=== PATIENT | female | born 1950 | race Hispanic/Latino ===

== ENCOUNTER 2017-06-30 07:43 | Day surgery (SDC) | payer OTHER ==
[~2017-06-30] VITALS: Ht 157.5 cm; Wt 69.9 kg
[2017-06-30 10:33] VITALS: BP 130/72
== END 2017-06-30 10:50 | disposition home or self-care (01) | DRG 446 ==
LOC: ENDO 07:43
PROVIDERS: ATTEND Surgery
PROC: 0FPB8DZ Removal of Intraluminal Device from Hepatobiliary Duct, Via Natural or Artificial Opening Endoscopic (ICD-10-PCS; principal; 2017-06-30)
DX: K80.50 Calculus of bile duct without cholangitis or cholecystitis without obstruction (principal)

== ENCOUNTER 2018-03-14 08:05 | Emergency (ER) | payer OTHER ==
[~2018-03-14] VITALS: Ht 157.5 cm; Wt 70.6 kg
[~2018-03-14 08:05] MED LIST: KEFLEX500 MG PO; PYRIDIUM200 MG PO
[2018-03-14 09:17] LABS: URINE BILIRUBIN - DIPSTICK NEGATIVE (NEGATIVE); URINE BLOOD DIPSTICK MODERATE (NEGATIVE); URINE COLOR YELLOW; URINE GLUCOSE - DIPSTICK NEGATIVE (NEGATIVE); URINE KETONE NEGATIVE (NEGATIVE); URINE LEUK ESTERASE TRACE (NEGATIVE); URINE NITRITE - DIPSTICK NEGATIVE (Negative); URINE PROTEIN - DIPSTICK TRACE mg/dL (NEG-TRACE); URINE SPECIFIC GRAVITY 1.025
[2018-03-14 09:18] LABS: URINE BACTERIA RARE hpf; URINE CLARITY SL CLOUDY; URINE EPITHELIAL CELLS FEW EPI/hpf (0-FEW); URINE WBC 0-2 WBC/hpf (0-5)
[2018-03-14 09:19] LABS: HEMATOCRIT 39.9 % (37.0-47.0); IMMATURE GRANULOCYTES 0.3 % (0.0-5.0); MEAN CELL VOLUME 92.6 fL CALC (80.0-100.0); MEAN CORPUSCULAR HGB 30.2 pG CALC (26.0-32.0); MEAN CORPUSCULAR HGB CONC 32.6 g/L CALC (32.0-36.0); NEUT# 3.91 thou/uL (2.00-7.15); RED BLOOD COUNT 4.31 mill/uL (4.20-5.60); RED CELL DISTRI WIDTH 13.1 % (11.5-15.5)
[2018-03-14 09:36] LABS: ALBUMIN 4.1 g/dL (3.2-5.0); ALKALINE PHOSPHATASE 80 u/l (38-126); ANION GAP 14 (6-22 (CALC)); BILIRUBIN, TOTAL 0.6 mg/dL (0.0-1.4); BUN 15 mg/dL (8-23); BUN/CREATININE RATIO 26 (12-20 (CALC)); CARBON DIOXIDE 25 mmol/l (22-30); CHLORIDE 108 mmol/l (95-108); CREATININE 0.6 mg/dL (0.5-1.0); GFR > 60 ML/MIN (>=60 (CALC)); GFR FOR AFR.AMER. > 60 ML/MIN (>=60 (CALC)); POTASSIUM 3.5 mmol/l (3.5-5.1); SGOT/AST 24 u/l (9-36); SGPT/ALT 26 u/l (11-66); SODIUM 143 mmol/l (137-146); TOTAL PROTEIN 7.5 g/dL (6.3-8.2)
[2018-03-14] MEDS ORDERED: TORADOL PO (12:32)
[2018-03-14] MEDS ORDERED: ULTRAM50 M1 PO (12:32)
[2018-03-14 12:45] VITALS: BP 140/69
== END 2018-03-14 12:50 | disposition home or self-care (01) ==
LOC: ED 08:05
PROVIDERS: Emergency Medicine
DX: K80.20 Calculus of gallbladder without cholecystitis without obstruction (principal); M47.812 Spondylosis without myelopathy or radiculopathy, cervical region; R10.11 Right upper quadrant pain; R10.31 Right lower quadrant pain; R30.0 Dysuria; M54.2 Cervicalgia; R10.2 Pelvic and perineal pain; R10.13 Epigastric pain
CPT/HCPCS: Q9967

== ENCOUNTER 2018-03-30 05:53 | Day surgery (SDC) | payer OTHER ==
[~2018-03-30] VITALS: Ht 162.6 cm; Wt 68.0 kg
[2018-03-30] VITALS (9 sets, daily range): BP systolic 107–141; BP diastolic 40–68
[~2018-03-30 05:53] MED LIST changes: +TORADOL PO; +ULTRAM50 M1 PO
[2018-03-30] MEDS ORDERED: PERCOCET 5/325M1 TAB PO (09:44)
[2018-03-30] MEDS ORDERED: MOTRIN800 MG PO (09:44)
--- NOTE | 2018-03-30 10:25 | NUR ---
PT ARRIVES VIA [facility] WITH CATHI CHICAS PT ABLE TO SCOOT OVER WITH NO ASSIST FROM STRECHER TO BED. TOLERATED WELL. #20 IN LAC INFUSING WELL. NO REDNESS OR EDEMA NOTED.ADMISSION ASSESMENT COMPLETED AT THIS TIME(SEE INTERVENTIONS). LUNG SOUNDS CLEAR. ABD IS DISTENDED BUT SOFT. HYPOACTIVE BOWEL SOUNDS PRESENT. 3 ADB DRESSINGS, CLEAN DRY AND INTACT, NO DRAINAGE NOTED ON ANY DRESSING . RUQ DRESSING SLIGHTLY LARGER DUE TO MARLYS DRAIN(SMALL AMOUNT SANGUINOUS DRNG NOTED). NO EDEMA NOTED. WILL NOTIFY RT FOR I.S. USAGE/TRAINING.EDUCATED REGAURDING DIET (ICE CHIPS PROVIDED WILL ADVANCE TOLERATED). OOB ACTIVITY AND GENERAL PLAN OF CARE. ALL CONVERSATION WITH DAUGHTER IN LAW JESSICA ACTING TRANSLATER PT IS GREEK SPEAKING ONLY. VERBALIZES UNDERSTANDING. ICE PACK CURRENTLY IN PLACE ON ABD. PT DENIES NEED FOR PAIN MEDICATION.SAFTEY MEASURES INTRODUCED. INSTRUCTED TO CALL FOR ANY ASSISTANCE. FAMILY MEMBERS AT BEDSIDE. PT ABLE TO DEMONSTRATE CALL DIEHL USAGE. WILL CONTINUE TO MONITOR.
--- NOTE | 2018-03-30 10:25 | NUR ---
PT ARRIVES [facility]IA [facility] WITH CATHI CHICAS PT ABLE TO SCOOT OVER WITH NO ASSIST FROM STRECHER TO BED. TOLERATED WELL. #20 IN LAC INFUSING WELL. NO REDNESS OR EDEMA NOTED.ADMISSION ASSESMENT COMPLETED AT THIS TIME(SEE INTERVENTIONS). LUNG SOUNDS CLEAR. ABD IS DISTENDED BUT SOFT. HT
--- NOTE | 2018-03-30 12:00 | NUR ---
PT RESTING IN BED WITH EYES CLOSED. FAMLIY AT BEDSIDE. IV RUNNING AT KVO. COFFE AND WATER PTOVIDED. COFFE TOLERATED WELL. CALL DIEHL IN REACH WILL CONTINUE TO MONITOR.
--- NOTE | 2018-03-30 14:00 | NUR ---
PT UP TO RR WITH MINIMAL ASSIST. VOIDED CLEAR YELLOW URINE. MARLYS DRAIN EMPTIED 30cc OF SANGUINOUS DRANIGE. PT COMPLAINS OF BURNING WITH URINATION. WILL LET MD KNOW AND COLLECT URINE. PT HAVING LITTLE PAIN BUT DOES NOT WANT A PAIN PILL. CALL DIEHL IN REACH WILL CONTINUE TO MONITOR.
--- NOTE | 2018-03-30 16:00 | NUR ---
PT RESTING QUIETLY WITH EYES CLOSED. IV DRESSING REDRESSED JLOOP APPLIED. WILL CONTINUE TO MONITOR.
--- NOTE | 2018-03-30 17:00 | NUR ---
PT UP TO RR WITH ASSIST OF DAUGHTER IN LAW. VOIDED CLEAR YELLOW URINE. URINE SPECIMEN COLLECTED AT THIS TIME. PUDDING PROVIDED TOLERATED. CALL DIEHL IN REACH. WILL CONTINUE TO MONITOR.
--- NOTE | 2018-03-30 18:15 | NUR ---
PT ADVANCED TO SOFT DIET. TOLERATING WELL. FEELS GREAT. CALL DIEHL IN REACH WILL CONTINUE TO MONITOR.
[2018-03-30 18:17] LABS: URINE BILIRUBIN - DIPSTICK NEGATIVE (NEGATIVE); URINE BLOOD DIPSTICK TRACE-INTACT (NEGATIVE); URINE COLOR YELLOW; URINE GLUCOSE - DIPSTICK NEGATIVE (NEGATIVE); URINE KETONE TRACE mg/dL (NEGATIVE); URINE LEUK ESTERASE NEGATIVE (Negative); URINE NITRITE - DIPSTICK NEGATIVE (Negative); URINE PROTEIN - DIPSTICK NEGATIVE (NEG-TRACE); URINE SPECIFIC GRAVITY 1.025; URINE UROBILINOGEN - DIPSTICK 0.2 E.U./dL (0.2)
[2018-03-30 18:18] LABS: URINE CLARITY CLEAR
--- NOTE | 2018-03-30 19:00 | NUR ---
RECEIVED CHANGE OF SHIFT REPORT FROM MICHELLE SERRANO. PT ALERT AND ORIENTED AND LYING IN BED. DENIES PAIN. VISITORS AT BEDSIDE. DELBERT NOTED TO ABDONINAL WOUND WITH MINIMAL DRAINAGE. DRSGS X 3 TO ABDOMEN NOTED CDI. NO APPARENT ACUTE DISTRESS NOTED. WILL CONTINUE TO MONITOR.
--- NOTE | 2018-03-31 | NUR ---
PT RESTING QUIETLY AT THIS TIME. NO APPARENT ACUTE DISTRESS NOTED.
[2018-03-31 04:00] VITALS: BP 121/71
--- NOTE | 2018-03-31 04:20 | NUR ---
PT SLEPT WELL DURING THE NIGHT. PAIN CONTROLLED. NO APPARENT ACUTE CHANGES NOTED IN PT' CONDITION.
[2018-03-31 05:46] LABS: ALBUMIN 3.2 g/dL (3.2-5.0); ALKALINE PHOSPHATASE 71 u/l (38-126); ANION GAP 11 (6-22 (CALC)); BILIRUBIN, TOTAL 0.4 mg/dL (0.0-1.4); BUN 8 mg/dL (8-23); BUN/CREATININE RATIO 13 (12-20 (CALC)); CARBON DIOXIDE 26 mmol/l (22-30); CHLORIDE 108 mmol/l (95-108); CREATININE 0.6 mg/dL (0.5-1.0); GFR > 60 ML/MIN (>=60 (CALC)); GFR FOR AFR.AMER. > 60 ML/MIN (>=60 (CALC)); POTASSIUM 3.6 mmol/l (3.5-5.1); SGOT/AST 67 u/l (9-36); SODIUM 141 mmol/l (137-146)
[2018-03-31 05:47] LABS: HEMATOCRIT 34.7 % (37.0-47.0); HEMOGLOBIN 11.3 g/dl (12.0-16.0); IMMATURE GRANULOCYTES 0.3 % (0.0-5.0); MEAN CELL VOLUME 92.8 fL CALC (80.0-100.0); MEAN CORPUSCULAR HGB 30.2 pG CALC (26.0-32.0); MEAN CORPUSCULAR HGB CONC 32.6 g/L CALC (32.0-36.0); NEUT# 3.88 thou/uL (2.00-7.15); RED BLOOD COUNT 3.74 mill/uL (4.20-5.60); RED CELL DISTRI WIDTH 13.2 % (11.5-15.5)
--- NOTE | 2018-03-31 07:20 | NUR ---
PT REPORT RECIEVED FROM JUAN FRANCISCO ACUÑA. PT SITTING UPRIGHT IN BED. NO S/S OF DISTRESS. PT DENIES ANY NEEDS AT THIS TIME. FAMILY AT BEDSIDE. CALL LIGHT IN REACH. WILL CONTINUE TO MONITOR.
[2018-03-31 08:17] VITALS: BP 126/73
--- NOTE | 2018-03-31 08:17 | NUR ---
PT ASSESSMENT COMPLETE. PT A/O X3. SPEECH IS CLEAR. PT DENIES ANY NAUSEA OR VOMITING AT THIS TIME. RESP EVEN AND UNLABORED. LUNG SOUNDS CLEAR. RT QUADRANT BOWELS HYPOACTIVE. LT QUADRANT BOWELS ACTIVE. PT DENIES ABDOMINAL PAIN BUT STATES SOME ABDOMINAL COMFORT TO RT QUADRANTS. ICE APPLIED. PT HAS 3 SMALL SURGICAL INCISIONS TO ABDOMEN. DRESSINGS CDI. STRONG RADIAL AND PEDAL PULSES. #20 LAC SL. IV SITE APPEARS HEALTHY. SCD IN PLACE. PLAN OF CARE DISCUSSED. PT AND FAMILY STATES UNDERSTANDING. SAFETY PRECAUTIONS IN PLACE. CALL LIGHT IN REACH. WILL CONTINUE TO MONITOR.
--- NOTE | 2018-03-31 11:10 | NUR ---
D/C INSTRUCTIONS REVIEWED WITH PT AND FAMILY. CARE OF DELBERT DRAIN REVIEWED. ALL QUESTIONS ANSWERED. PT AND FAMILY STATE UNDERSTANDING.
[2018-03-31 11:11] VITALS: BP 126/68
--- NOTE | 2018-03-31 11:20 | NUR ---
Discharge instructions given. Patient verbalizes understanding of same. Discharged in stable condition via Wheelchair to Home with family. All belongings sent with pt.
== END 2018-03-31 11:20 | disposition home or self-care (01) ==
LOC: MS2 05:53 → ORM 05:53 → MS2 10:26 → ORM 03-31 11:20
PROVIDERS: ATTEND Surgery
DX: K80.10 Calculus of gallbladder with chronic cholecystitis without obstruction (principal)
CPT/HCPCS: Q9967

== ENCOUNTER 2019-03-27 12:57 | Emergency (ER) | payer MEDICARE, OTHER ==
[~2019-03-27] VITALS: Ht 162.6 cm; Wt 69.0 kg
[~2019-03-27 12:57] MED LIST changes: +MOTRIN800 MG PO; +PERCOCET 5/325M1 TAB PO
[2019-03-27 14:16] LABS: HEMATOCRIT 39.9 % (37.0-47.0); HEMOGLOBIN 12.9 g/dl (12.0-16.0); IMMATURE GRANULOCYTES 0.3 % (0.0-5.0); MEAN CELL VOLUME 91.3 fL CALC (80.0-100.0); MEAN CORPUSCULAR HGB 29.5 pG CALC (26.0-32.0); MEAN CORPUSCULAR HGB CONC 32.3 g/L CALC (32.0-36.0); NEUT# 5.84 thou/uL (2.00-7.15); RED BLOOD COUNT 4.37 mill/uL (4.20-5.60); RED CELL DISTRI WIDTH 13.5 % (11.5-15.5)
[2019-03-27 14:45] LABS: ALKALINE PHOSPHATASE 89 u/l (38-126); AMYLASE 61 u/l (30-110); ANION GAP 12 (6-22 (CALC)); BILIRUBIN, TOTAL 0.3 mg/dL (0.0-1.4); BUN 10 mg/dL (8-23); BUN/CREATININE RATIO 15 (12-20 (CALC)); CARBON DIOXIDE 28 mmol/l (22-30); CHLORIDE 105 mmol/l (95-108); CREATININE 0.7 mg/dL (0.5-1.0); GFR > 60 ML/MIN (>=60 (CALC)); GFR FOR AFR.AMER. > 60 ML/MIN (>=60 (CALC)); LIPASE 57 u/l (23-300); POTASSIUM 3.6 mmol/l (3.5-5.1); SGOT/AST 22 u/l (9-36); SODIUM 140 mmol/l (137-146)
[2019-03-27 14:49] LABS: ALBUMIN 4.1 g/dL (3.2-5.0); TOTAL PROTEIN 7.5 g/dL (6.3-8.2)
[2019-03-27 15:13] LABS: URINE BILIRUBIN - DIPSTICK NEGATIVE (NEGATIVE); URINE BLOOD DIPSTICK SMALL (NEGATIVE); URINE COLOR YELLOW; URINE GLUCOSE - DIPSTICK NEGATIVE (NEGATIVE); URINE KETONE NEGATIVE (NEGATIVE); URINE NITRITE - DIPSTICK NEGATIVE (Negative); URINE PROTEIN - DIPSTICK NEGATIVE (NEG-TRACE); URINE SPECIFIC GRAVITY <=1.005; URINE UROBILINOGEN - DIPSTICK 0.2 E.U./dL (0.2)
[2019-03-27 15:15] LABS: URINE LEUK ESTERASE SMALL (NEGATIVE)
[2019-03-27 15:34] LABS: URINE SQUAMOUS EPITHELIAL CELL FEW EPI/hpf (0-FEW)
[2019-03-27] MEDS ORDERED: PROTONIX40 MG PO (16:27)
[2019-03-27] MEDS ORDERED: KEFLEX500 MG PO (16:27)
[2019-03-27 17:10] VITALS: BP 149/71
== END 2019-03-27 17:10 | disposition home or self-care (01) ==
LOC: ED 12:57
DX: R10.13 Epigastric pain (principal); N39.0 Urinary tract infection, site not specified
CPT/HCPCS: Q9967

== ENCOUNTER 2019-07-04 | Emergency (ER) | payer MEDICARE ==
[~2019-07-04] MED LIST changes: +PROTONIX40 MG PO
[2019-07-04 11:39] LABS: URINE BILIRUBIN - DIPSTICK NEGATIVE (NEGATIVE); URINE BLOOD DIPSTICK MODERATE (NEGATIVE); URINE COLOR YELLOW; URINE GLUCOSE - DIPSTICK NEGATIVE (NEGATIVE); URINE KETONE NEGATIVE (NEGATIVE); URINE LEUK ESTERASE NEGATIVE (NEGATIVE); URINE NITRITE - DIPSTICK NEGATIVE (Negative); URINE PROTEIN - DIPSTICK NEGATIVE (NEG-TRACE); URINE SPECIFIC GRAVITY 1.015; URINE UROBILINOGEN - DIPSTICK 0.2 E.U./dL (0.2)
[2019-07-04 11:40] LABS: URINE RBC 0-2 RBC/hpf (0-5); URINE WBC 0-2 WBC/hpf (0-5)
[2019-07-04 12:15] LABS: HEMATOCRIT 37.2 % (37.0-47.0); IMMATURE GRANULOCYTES 0.2 % (0.0-5.0); MEAN CELL VOLUME 92.1 fL CALC (80.0-100.0); MEAN CORPUSCULAR HGB 29.7 pG CALC (26.0-32.0); MEAN CORPUSCULAR HGB CONC 32.3 g/L CALC (32.0-36.0); NEUT# 3.57 thou/uL (2.00-7.15); RED BLOOD COUNT 4.04 mill/uL (4.20-5.60); RED CELL DISTRI WIDTH 13.2 % (11.5-15.5)
[2019-07-04 13:19] LABS: ALBUMIN 3.7 g/dL (3.2-5.0); ALKALINE PHOSPHATASE 68 u/l (38-126); ANION GAP 11 (6-22 (CALC)); BILIRUBIN, TOTAL 0.3 mg/dL (0.0-1.4); BUN 12 mg/dL (8-23); BUN/CREATININE RATIO 20 (12-20 (CALC)); CARBON DIOXIDE 27 mmol/l (22-30); CHLORIDE 105 mmol/l (95-108); CREATININE 0.6 mg/dL (0.5-1.0); GFR > 60 ML/MIN (>=60 (CALC)); GFR FOR AFR.AMER. > 60 ML/MIN (>=60 (CALC)); LIPASE 51 u/l (23-300); POTASSIUM 3.9 mmol/l (3.5-5.1); SGOT/AST 22 u/l (9-36); SODIUM 139 mmol/l (137-146); TOTAL PROTEIN 7.1 g/dL (6.3-8.2)
[2019-07-04] MEDS ORDERED: PROTONIX40 M2 PO (16:17)
== END 2019-07-04 16:39 | disposition home or self-care (01) ==
PROVIDERS: Family Medicine
DX: K29.70 Gastritis, unspecified, without bleeding (principal); R31.9 Hematuria, unspecified
CPT/HCPCS: Q9967

== ENCOUNTER 2021-03-14 10:10 | Emergency (ER) | payer MEDICARE ==
[~2021-03-14] VITALS: Ht 162.6 cm; Wt 70.0 kg
[~2021-03-14 10:10] MED LIST changes: +PROTONIX40 M2 PO
[2021-03-14 11:36] LABS: URINE BILIRUBIN - DIPSTICK NEGATIVE (NEGATIVE); URINE BLOOD DIPSTICK SMALL (NEGATIVE); URINE COLOR YELLOW; URINE GLUCOSE - DIPSTICK NEGATIVE (NEGATIVE); URINE KETONE NEGATIVE (NEGATIVE); URINE PROTEIN - DIPSTICK NEGATIVE (NEG-TRACE); URINE UROBILINOGEN - DIPSTICK 0.2 E.U./dL (0.2)
[2021-03-14 11:37] LABS: URINE LEUK ESTERASE SMALL (NEGATIVE); URINE NITRITE - DIPSTICK NEGATIVE (Negative)
[2021-03-14 11:46] LABS: URINE RBC 0-2 RBC/hpf (0-5); URINE SQUAMOUS EPITHELIAL CELL FEW EPI/hpf (0-FEW); URINE TRANSITIONAL EPI. CELLS FEW hpf
[2021-03-14] MEDS ORDERED: OMNI-PAC300 MG PO (11:54)
[2021-03-14] MEDS ORDERED: PROTONIX40 M2 PO (11:54)
[2021-03-14] MEDS ORDERED: TORADOL PO (11:54)
[2021-03-14 12:20] VITALS: BP 164/76
== END 2021-03-14 12:20 | disposition home or self-care (01) ==
LOC: ED 10:10
PROVIDERS: Family Medicine
DX: M25.512 Pain in left shoulder (principal); M25.511 Pain in right shoulder; K29.70 Gastritis, unspecified, without bleeding; N39.0 Urinary tract infection, site not specified; K21.9 Gastro-esophageal reflux disease without esophagitis